=== PATIENT | female | born 1960 | race Caucasian/White ===

== ENCOUNTER → 2016-09-07 | Outpatient (CLI) | payer OTHER, MEDICAID | LOC: FIMAGING 09:00 | PROVIDERS: ATTEND Family Medicine | DX: M79.609 Pain in unspecified limb (principal); R20.2 Paresthesia of skin ==

== ENCOUNTER → 2018-09-09 | Outpatient (CLI) | payer OTHER | LOC: CIMAGING 15:05 | PROVIDERS: ATTEND Family Medicine | DX: M46.1 Sacroiliitis, not elsewhere classified (principal) | CPT/HCPCS: 72200-PO ==